=== PATIENT | male | born 1945 | race Hispanic/Latino ===

== ENCOUNTER 2017-06-06 05:58 | Day surgery (SDC) | payer OTHER ==
[~2017-06-06] VITALS: Ht 175.3 cm; Wt 87.5 kg
[~2017-06-06 05:58] MED LIST: ATOR40TA71 PO; CHOL100040 PO; FURO20TA4 PO; METO50TA18 PO
[2017-06-06 06:22] VITALS: BP 138/77
[2017-06-06] MEDS ORDERED: SODIUM CHLORIDE 0.9% 1000ML 1,000 ML IV ONE (06:37)
[2017-06-06 06:46] LABS: INR 1.08 (0.85-1.15); PROTHROMBIN TIME 11.3 SEC (9.6-11.6)
[2017-06-06] MEDS ORDERED: WARF4TAB41 PO (07:01)
[2017-06-06] MEDS ORDERED: WARF2TAB57 PO (07:01)
[2017-06-06] MEDS ORDERED: PROPOFOL 1000 MG/100 ML 100 ML IV ONE (07:29)
[2017-06-06 07:51] VITALS: BP 93/62
== END 2017-06-06 08:35 ==
LOC: ENDO 05:58 → DAH 05:58 → ENDO 08:35
PROVIDERS: ATTEND Internal Medicine Gastroenterology
DX: Z09 Encounter for follow-up examination after completed treatment for conditions other than malignant neoplasm (principal); D12.2 Benign neoplasm of ascending colon; Z86.010 Personal history of colon polyps; I10 Essential (primary) hypertension; I48.91 Unspecified atrial fibrillation; Z98.890 Other specified postprocedural states; Z79.899 Other long term (current) drug therapy; Z68.39 Body mass index [BMI] 39.0-39.9, adult; I49.9 Cardiac arrhythmia, unspecified; K57.30 Diverticulosis of large intestine without perforation or abscess without bleeding
CPT/HCPCS: 36415; 45380; 85610; 88305; 93005; A4606; J2704; J7030

== ENCOUNTER → 2018-01-01 | Outpatient (CLI) | payer OTHER | END | disposition home or self-care (01) | LOC: RAH 11:51 | PROVIDERS: ATTEND Family Medicine | DX: R22.1 Localized swelling, mass and lump, neck (principal) | CPT/HCPCS: 76536 ==